=== PATIENT | male | born 1955 | race Two or more races ===

== ENCOUNTER 2020-03-16 09:31 | Outpatient (CLI) | payer OTHER | END 2020-03-16 09:32 | disposition home or self-care (01) | LOC: SONOGRAMA 09:31 | PROVIDERS: ATTEND Pathology Anatomic Pathology & Clinical Pathology | DX: E04.2 Nontoxic multinodular goiter (principal) ==

== ENCOUNTER 2020-07-20 09:01 | Outpatient (CLI) | payer OTHER | END 2020-07-20 09:16 | disposition home or self-care (01) | LOC: SONOGRAMA 09:01 | PROVIDERS: ATTEND Pathology Anatomic Pathology & Clinical Pathology | DX: E04.2 Nontoxic multinodular goiter (principal) ==